=== PATIENT | female | born 1955 ===

== ENCOUNTER 2018-11-24 08:41 | Emergency (ER) | payer OTHER ==
[~2018-11-24] VITALS: Ht 165.1 cm; Wt 81.6 kg
== END 2018-11-24 14:51 | disposition home or self-care (01) ==
LOC: ER 08:41
DX: S00.83XA Contusion of other part of head, initial encounter (principal); W18.09XA Striking against other object with subsequent fall, initial encounter; Y93.89 Activity, other specified; Y92.89 Other specified places as the place of occurrence of the external cause; Y99.8 Other external cause status

== ENCOUNTER 2022-01-16 09:52 | Emergency (ER) | payer OTHER ==
[~2022-01-16] VITALS: Ht 165.1 cm; Wt 92.1 kg
[2022-01-16] MEDS ORDERED: KETO10TA2 PO (11:38)
[2022-01-16] MEDS ORDERED: ORPHENADRINE C100 MG PO (11:38)
== END 2022-01-16 12:03 | disposition home or self-care (01) ==
LOC: ER 09:52
DX: M54.32 Sciatica, left side (principal); M62.830 Muscle spasm of back